=== PATIENT | female | born 1985 | race African-American/Black ===

== ENCOUNTER 2017-05-14 14:34 | Emergency (ER) | payer BC ==
[~2017-05-14] VITALS: Ht 175.3 cm; Wt 88.5 kg
[2017-05-14 14:49] VITALS: BP_SYST 128
[2017-05-14 18:30] VITALS: BP_SYST 115
== END 2017-05-14 19:55 | disposition left against medical advice (07) ==
LOC: SED 14:34
DX: T62.91XA Toxic effect of unspecified noxious substance eaten as food, accidental (unintentional), initial encounter (principal); Z53.21 Procedure and treatment not carried out due to patient leaving prior to being seen by health care provider; Y92.89 Other specified places as the place of occurrence of the external cause